=== PATIENT | male | born 1965 | race Caucasian/White ===

== ENCOUNTER 2018-03-22 20:01 | Emergency (ER) | payer OTHER ==
[2018-03-22] MEDS ORDERED: DIPHTH,PERTUSS(ACELL),TET 0.5 ML DISP.SYRIN IM ONE (20:19)
--- NOTE | 2018-03-22 20:19 | PDOC ---
Rapid Medical Evaluation Time Seen by Provider: 03/22/18 20:15 Medical Evaluation: 03/22/18 20:17 Pt presents to the ED for L 3rd finger nail bed avulsion. Pt states that a lamp fell on the finger while he was working. Pt is R hand dominant Exam: Full ROM of finger. Nailbed is fully avulsed and actively bleeding Orders: X-ray, boostrix Pt to proceed to the ED for further evaluation Discharge Disposition - Diagnosis Avulsion of nail bed - Referrals - Patient Instructions - Post Discharge Activity
[2018-03-22 20:21] VITALS: BP 159/94; PULSE 113; TEMP 98.5; BMI 25.8
[2018-03-22] MEDS ORDERED: ceFAZolin SODIUM 1 GM VIAL IM ONE (21:37)
[2018-03-22] MEDS ORDERED: CEFAZOLIN 1 GM in DEXTROSE 5%-WATER - 50 ML IVPB ONE (21:45)
[2018-03-22] MEDS ORDERED: CEFAZOLIN 1 GM/D5W 1 GM/50 ML BAG ONE (21:47)
--- NOTE | 2018-03-22 22:42 | PDOC ---
History of Present Illness - General Chief Complaint: Pain Stated Complaint: BROKEN FINGER Time Seen by Provider: 03/22/18 20:15 - History of Present Illness Initial Comments: 03/22/18 22:37 53-year-old male not current on tetanus, no comorbidities, presents for evaluation of left third finger injury. He states a lamp fell on his finger. Past History - Past Medical History Allergies/Adverse Reactions: Allergies Allergy/AdvReac Type Severity Reaction Status Date / Time No Known Allergies Allergy Verified 03/22/18 20:51 Home Medications: Ambulatory Orders Cephalexin [Keflex] 500 mg PO QID #20 capsule 03/22/18 Ibuprofen [Motrin -] 600 mg PO TID #30 tablet 03/22/18 - Suicide/Smoking/Psychosocial Hx Smoking History: Never smoked Have you smoked in the past 12 months: No Hx Alcohol Use: No Drug/Substance Use Hx: No Review of Systems - Review of Systems Musculoskeletal: Yes: See HPI *Physical Exam - Vital Signs Last Vital Signs Temp Pulse Resp BP Pulse Ox 98.5 F 113 H 20 159/94 98 03/22/18 20:15 03/22/18 20:15 03/22/18 20:15 03/22/18 20:15 03/22/18 20:15 - Physical Exam Comments: 03/22/18 22:38 There is a complete avulsion of the nail of the left third finger. There is an L -shaped laceration on the nail bed. There are no gross sensory or motor deficits. Moderate Sedation - Procedure Monitoring Vital Signs: Procedure Monitoring Vital Signs Temperature 98.5 F 03/22/18 20:15 Pulse Rate 113 H 03/22/18 20:15 Respiratory Rate 20 03/22/18 20:15 Blood Pressure 159/94 03/22/18 20:15 O2 Sat by Pulse Oximetry (%) 98 03/22/18 20:15 ED Treatment Course - Medications Given in the ED: ED Medications Discontinued Medications Generic Name Dose Route Start Last Admin Trade Name Freq PRN Reason Stop Dose Admin Cefazolin Sodium 1 gm 03/22/18 21:37 03/22/18 22:09 Ancef - IM 03/22/18 21:38 Not Given ONCE ONE Diphtheria/Tetanus/Acell Pertussis 0.5 ml 03/22/18 20:19 03/22/18 21:02 Boostrix - IM 03/22/18 20:20 0.5 ml .ONCE ONE Administration Cefazolin Sodium 1 gm/ 50 mls @ 100 mls/hr 03/22/18 21:45 03/22/18 22:18 Dextrose IVPB 03/22/18 22:14 100 mls/hr ONCE ONE Administration Medical Decision Making - Medical Decision Making 03/22/18 22:38 X-ray show a fracture of the distal phalanx of the left third finger. This is an open fracture IV Ancef was ordered. After a digital block was done aseptically using 6 mL of 1% lidocaine without epinephrine the wound was further inspected. There was no foreign body identified. The wound was then copiously irrigated with normal saline prepped with Betadine 5 simple interrupted sutures using 5-0 nylon were used to close the nailbed. This was discussed with hand surgery. A dry sterile dressing was placed As well as a splint. *DC/Admit/Observation/Transfer Diagnosis at time of Disposition: Avulsion of nail bed, Open fracture of distal phalanx of left hand, Laceration of nail bed of finger - Discharge Dispostion Disposition: HOME Condition at time of disposition: Stable Decision to Admit order: No - Prescriptions Prescriptions: Cephalexin [Keflex] 500 mg PO QID #20 capsule Ibuprofen [Motrin -] 600 mg PO TID #30 tablet - Referrals Referrals: Carolann Crowe MD [Primary Care Provider] - - Patient Instructions Printed Discharge Instructions: Finger Fracture, DI for Finger Fracture, DI for Nail Bed Injury Additional Instructions: Please follow-up with hand surgery Dr Kavin [place] tomorrow at 12:00 pm at [facility] 1st floor diagnostic center. Please take the antibiotics as directed and finish the entire coure. Please take the Motrin for pain as needed 3 times a day one tablet with food for pain. Discontinue the medication if it bothers her stomach. Return to the emergency room should you have any further issues. If you need additional pain medication you may supplement Motrin with additional Tylenol as directed. - Post Discharge Activity
== END 2018-03-22 22:47 | disposition home or self-care (01) ==
LOC: JERFT 20:01
PROC: 3E0234Z Introduction of Serum, Toxoid and Vaccine into Muscle, Percutaneous Approach (ICD-10-PCS; principal; 2018-03-22)
PROC: 0HQGXZZ Repair Left Hand Skin, External Approach (ICD-10-PCS; 2018-03-22)
PROC: 2W3KX1Z Immobilization of Left Finger using Splint (ICD-10-PCS; 2018-03-22)
DX: S62.663B Nondisplaced fracture of distal phalanx of left middle finger, initial encounter for open fracture (principal); S61.313A Laceration without foreign body of left middle finger with damage to nail, initial encounter; W22.8XXA Striking against or struck by other objects, initial encounter; Y93.H3 Activity, building and construction; Y92.69 Other specified industrial and construction area as the place of occurrence of the external cause; Y99.0 Civilian activity done for income or pay
CPT/HCPCS: 73130-TC-LT-FY; 90715; 99281-25